=== PATIENT | male | born 1960 | race Two or more races ===

== ENCOUNTER 2018-10-03 10:21 | Observation (INO) ==
[2018-10-03 13:17] LABS: Basophils % 0.2 % (0.0-0.8); Hematocrit 50.4 VOL% (42.0-52.0); Hemoglobin 16.5 GM/DL (14.0-18.0); Immature Granulocytes % 1.2 %; Lymphocytes # 2.4 10*3/uL (1.4-4.0); Mean Corpuscular HGB Conc 32.7 GM/DL (32-36); Mean Platelet Volume 9.3 FL (9.6-12.0); Monocytes % 5.5 % (1.7-12.7); Neutrophils % 78.1 % (38.7-73.9); Platelet Count 305 T/CUMM (130-400); Red Cell Distribution Width 13.8 % (9.3-17.3); White Blood Count 16.1 T/CUMM (4-12)
[2018-10-03 13:32] LABS: Albumin 4.9 G/DL (3.4-5.0); Bilirubin,Total 0.7 MG/DL (0.2-1.0); Calcium 10.3 MG/DL (8.5-10.1); Osmolality,Calculated 277.7 MOS/KG (273-304); Total Protein 9.8 G/DL (6.4-8.3)
[2018-10-03] MEDS ORDERED: cefTRIAXone 1,000 MG in SODIUM CHLORIDE 0.9% 100 ML IV STA (13:39)
[2018-10-03] MEDS ORDERED: SODIUM CHLORIDE 0.9% 1,000 ML IV STA (13:39)
[2018-10-03] MEDS ORDERED: PANTOPRAZOLE 40 MG VIAL IV STA (13:39)
[2018-10-03] MEDS ORDERED: ONDANSETRON 4 MG/2 ML VIAL IV STA (13:41)
[2018-10-03] MEDS ORDERED: ONDANSETRON 4 MG/2 ML VIAL IV PRN (15:22)
[2018-10-03] MEDS ORDERED: PROMETHAZINE 25 MG/1 ML VIAL IM PRN (15:22)
[2018-10-03] MEDS ORDERED: LACTATED RINGERS 1,000 ML IV ONE (15:25)
[2018-10-03] MEDS ORDERED: NICOTINE 21 MG/24 HR PATCH TRANSDERM PRN (16:51)
[2018-10-03] MEDS: DEXTROSE 5% NACL 0.45% 1,000 ML IV SCH (18:36)
[2018-10-03] MEDS: FAMOTIDINE 20 MG/2 ML VIAL IV SCH (19:00)
[2018-10-03 22:31] LABS: Hemoglobin 12.8 GM/DL (14.0-18.0)
[2018-10-03] MEDS: PANTOPRAZOLE 40 MG TABLET PO SCH (22:32)
[2018-10-03] MEDS: RANITIDINE 150 MG/10 ML 30 ML BOTTLE PO SCH (22:33)
[2018-10-04 05:31] LABS: Basophils % 0.3 % (0.0-0.8); Eosinophils % 0.2 % (0.00-10.9); Hematocrit 39.9 VOL% (42.0-52.0); Hemoglobin 12.8 GM/DL (14.0-18.0); Immature Granulocytes % 0.5 %; Immature Granulocytes Absolute 0.08 #; Lymphocytes # 3.4 10*3/uL (1.4-4.0); Lymphocytes % 23.3 % (21.2-54.2); Mean Corpuscular HGB Conc 32.1 GM/DL (32-36); Mean Corpuscular Volume 85.8 FL (87-102); Mean Platelet Volume 9.7 FL (9.6-12.0); Monocytes % 8.9 % (1.7-12.7); Neutrophils % 66.8 % (38.7-73.9); Platelet Count 238 T/CUMM (130-400); Red Blood Count 4.65 MC/CUMM (3.8-5.5); Red Cell Distribution Width 13.8 % (9.3-17.3); White Blood Count 14.7 T/CUMM (4-12)
[2018-10-04 06:04] LABS: Albumin 3.5 G/DL (3.4-5.0); Bilirubin,Total 0.9 MG/DL (0.2-1.0); Calcium 8.6 MG/DL (8.5-10.1); Osmolality,Calculated 279.3 MOS/KG (273-304); Total Protein 6.7 G/DL (6.4-8.3)
[2018-10-04] MEDS: DEXTROSE 5% NACL 0.45% 1,000 ML IV SCH ×2 (07:00→09:50)
[2018-10-04] MEDS: FAMOTIDINE 20 MG/2 ML VIAL IV SCH (07:22)
[2018-10-04] MEDS ORDERED: SODIUM CHLOR 0.9% KCL 20 MEQ 20 MEQ/1,000 ML BAG IV SCH (08:30)
[2018-10-04] MEDS: PANTOPRAZOLE 40 MG TABLET PO SCH (08:41)
[2018-10-04] MEDS: RANITIDINE 150 MG/10 ML 30 ML BOTTLE PO SCH (08:43)
[2018-10-04 11:16] VITALS: BP 132/75
== END 2018-10-04 12:10 | disposition home or self-care (01) ==
LOC: N.EDINP 10:21 → N.ED 10:21 → N.3E 17:30
PROVIDERS: ADMIT Family Medicine; ATTEND Family Medicine